=== PATIENT | male | born 1965 | race Caucasian/White ===

== ENCOUNTER 2023-01-11 11:25 | Inpatient (IN) | payer MEDICAID ==
[~2023-01-11] VITALS: Ht 170.2 cm; Wt 75.3 kg
[2023-01-11] MEDS ORDERED: SODIUM CHLORIDE 0.9% 1,000 ML IV ONE (11:45)
[2023-01-11 13:09] LABS: BASOPHILS % 0.1 % (0.0-2.0); EOSINOPHILS % 0.1 % (0.0-5.0); HEMATOCRIT. 31.1 % (42.0-52.0); HEMOGLOBIN. 10.2 g/dL (14.0-18.0); MEAN CORPUSCULAR HEMOGLOBIN 26.7 pg (28.0-32.0); MEAN CORPUSCULAR VOLUME 81.5 fL (80.0-94.0); MEAN PLATELET VOLUME 6.2 fl (7.4-10.4); MONOCYTES % 11.3 % (2.0-8.0); NEUTROPHILS % 80.5 % (40.0-76.0); PLATELET 260 x1000/uL (130-400); RED BLOOD CELL COUNT 3.81 mill/uL (4.7-6.1); RED CELL DISTRIBUTION WIDTH 17.5 % (11.6-14.6)
[2023-01-11 13:14] LABS: CHLORIDE 109 mEq/L (98-107)
[2023-01-11 13:20] LABS: INR 1.1; PROTHROMBIN TIME 11.8 sec (9.6-11.0)
[2023-01-11 14:40] LABS: ETHANOL BLOOD < 10 mg/dL
[2023-01-11] MEDS ORDERED: SODIUM CHLORIDE 0.9% 1000ML BAG (SEPSIS BOLUS) IV ONE (16:45)
[2023-01-11] MEDS ORDERED: PIPERACILLIN/TAZ 3.375G PREMIX 50 ML IV ONE (16:45)
[2023-01-11 17:00] LABS: CLARITY URINE CLOUDY (CLEAR); COLOR URINE YELLOW (YELLOW); KETONES URINE NEGATIVE (NEGATIVE); LEUKOCYTE ESTERASE URINE 3+ (NEGATIVE); NITRITE URINE POSITIVE (NEGATIVE); OCCULT BLOOD URINE TRACE (NEGATIVE); PH URINE 5.5 (4.5-8.0); PROTEIN URINE 1+ (NEGATIVE); SPECIFIC GRAVITY URINE 1.012 (1.005-1.030); UROBILINOGEN URINE 0.2 E.U./dL (0.2-1.0)
[2023-01-11] MEDS ORDERED: IOHEXOL-300 100 ML BOTTLE ONE (17:14)
[2023-01-11] MEDS ORDERED: VANCOMYCIN 1G PREMIX 200 ML IV ONE (19:30)
[2023-01-12] MEDS ORDERED: ASPI-1497 PO (03:09)
[2023-01-12] MEDS ORDERED: CARV25TA47 PO (03:10)
[2023-01-12] MEDS ORDERED: LISI40TA13 PO (03:10)
[2023-01-12] MEDS ORDERED: ATOR-2 PO (03:11)
[2023-01-12] MEDS ORDERED: HYDR-4134 PO (03:13)
[2023-01-12] MEDS ORDERED: AMLO10TA80 PO (03:13)
[2023-01-12 03:16] VITALS: BP 125/49
[2023-01-12] MEDS ORDERED: ISOS30TA91 PO (03:16)
[2023-01-12 04:00] VITALS: BP 125/49
[2023-01-12] MEDS: SODIUM CHLORIDE 0.9% 1,000 ML IV SCH ×3 (04:18→21:36)
[2023-01-12] MEDS ORDERED: CEFTRIAXONE 1,000 MG in DEXTROSE 5% WATER 50 ML IV SCH ×2 (06:00→09:00)
[2023-01-12 07:12] LABS: HEMATOCRIT. 31.6 % (42.0-52.0); HEMOGLOBIN. 10.4 g/dL (14.0-18.0); MEAN CORPUSCULAR HEMOGLOBIN 26.7 pg (28.0-32.0); MEAN CORPUSCULAR VOLUME 81.5 fL (80.0-94.0); MEAN PLATELET VOLUME 6.9 fl (7.4-10.4); PLATELET 245 x1000/uL (130-400); RED BLOOD CELL COUNT 3.88 mill/uL (4.7-6.1); RED CELL DISTRIBUTION WIDTH 17.9 % (11.6-14.6)
[2023-01-12 08:00] VITALS: BP 132/68
[2023-01-12 08:35] LABS: CHLORIDE 106 mEq/L (98-107)
[2023-01-12] MEDS: ENOXAPARIN 40MG/0.4ML SYR SUBCUT SCH (08:56)
[2023-01-12] MEDS ORDERED: CEFTRIAXONE SODIUM 1 G/VIAL IM SCH (09:00)
[2023-01-12 12:00] VITALS: BP 115/56
[2023-01-12] MEDS: ASPIRIN 81MG EC TABLET PO SCH (13:28)
[2023-01-12] MEDS: AMLODIPINE 10MG TABLET PO SCH (14:00)
[2023-01-12] MEDS: CARVEDILOL 12.5MG TABLET PO SCH ×2 (14:30→21:34)
[2023-01-12] MEDS: HYDRALAZINE HCL 25MG TABLET PO SCH ×2 (14:30→16:11)
[2023-01-12 14:51] LABS: PLATELET ESTIMATE NORMAL
[2023-01-12] MEDS: ISOSORBIDE MONONITRATE 30MG TABLET SR 24HR PO SCH (14:54)
[2023-01-12 16:00] VITALS: BP 144/78
[2023-01-12] MEDS ORDERED: VANCOMYCIN 1G PREMIX 200 ML IV SCH (16:00)
[2023-01-12] MEDS: MEROPENEM 1,000 MG in SODIUM CHLORIDE 0.9% 100 ML IV SCH ×2 (16:04→21:34)
[2023-01-12 20:00] VITALS: BP_SYST 126; BP_SYST 143; BP_SYST 145; BP_DIAS 69; BP_DIAS 72; BP_DIAS 75
[2023-01-12] MEDS: ATORVASTATIN CALCIUM 40MG TABLET PO SCH (21:34)
[2023-01-12] MEDS ORDERED: AMIKACIN SULFATE 500 MG in SODIUM CHLORIDE 0.9% 100 ML IV SCH (23:30)
[2023-01-13 00:09] VITALS: BP 144/72
[2023-01-13 04:00] VITALS: BP 130/56
[2023-01-13] MEDS: MEROPENEM 1,000 MG in SODIUM CHLORIDE 0.9% 100 ML IV SCH (06:12)
[2023-01-13 06:32] LABS: BASOPHILS % 0.2 % (0.0-2.0); EOSINOPHILS % 0.5 % (0.0-5.0); HEMATOCRIT. 29.8 % (42.0-52.0); HEMOGLOBIN. 9.8 g/dL (14.0-18.0); LYMPHOCYTES % 7.2 % (20.0-50.0); MEAN CORPUSCULAR HEMOGLOBIN 26.6 pg (28.0-32.0); MEAN CORPUSCULAR VOLUME 81.3 fL (80.0-94.0); MEAN PLATELET VOLUME 7.2 fl (7.4-10.4); MONOCYTES % 9.8 % (2.0-8.0); NEUTROPHILS % 82.3 % (40.0-76.0); PLATELET 225 x1000/uL (130-400); RED BLOOD CELL COUNT 3.67 mill/uL (4.7-6.1); RED CELL DISTRIBUTION WIDTH 18.5 % (11.6-14.6)
[2023-01-13 08:00] VITALS: BP 155/78
[2023-01-13] MEDS: ENOXAPARIN 40MG/0.4ML SYR SUBCUT SCH (08:28)
[2023-01-13] MEDS: ASPIRIN 81MG EC TABLET PO SCH (08:29)
[2023-01-13] MEDS: ISOSORBIDE MONONITRATE 30MG TABLET SR 24HR PO SCH (08:29)
[2023-01-13] MEDS: LISINOPRIL 40MG TABLET PO SCH (08:30)
[2023-01-13] MEDS: CARVEDILOL 12.5MG TABLET PO SCH ×2 (08:30→21:47)
[2023-01-13] MEDS: HYDRALAZINE HCL 25MG TABLET PO SCH (08:31)
[2023-01-13] MEDS: SODIUM CHLORIDE 0.9% 1,000 ML IV SCH ×2 (08:34→19:21)
[2023-01-13] MEDS: AMLODIPINE 10MG TABLET PO SCH (08:34)
[2023-01-13 12:00] VITALS: BP 131/67
[2023-01-13] MEDS ORDERED: MEROPENEM-0.9% SODIUM CHLORIDE 50 ML IV SCH (14:00)
[2023-01-13] MEDS: HYDRALAZINE HCL 50MG TABLET PO SCH ×2 (14:47→21:56)
[2023-01-13 15:30] LABS: CHLORIDE 111 mEq/L (98-107)
[2023-01-13 16:00] VITALS: BP 125/63
[2023-01-13 20:00] VITALS: BP_SYST 135; BP_SYST 138; BP_DIAS 72; BP_DIAS 73
[2023-01-13] MEDS: ATORVASTATIN CALCIUM 40MG TABLET PO SCH (21:47)
[2023-01-14] VITALS: BP 130/68
[2023-01-14 04:00] VITALS: BP 126/68
[2023-01-14] MEDS: SODIUM CHLORIDE 0.9% 1,000 ML IV SCH (05:29)
[2023-01-14] MEDS: HYDRALAZINE HCL 50MG TABLET PO SCH (05:29)
[2023-01-14 08:00] VITALS: BP_SYST 157; BP_SYST 167; BP_DIAS 88; BP_DIAS 90
[2023-01-14] MEDS ORDERED: CEFTRIAXONE 2 G in DEXTROSE 5% WATER 50 ML IV SCH (09:00)
[2023-01-14] MEDS: ENOXAPARIN 40MG/0.4ML SYR SUBCUT SCH (09:17)
[2023-01-14] MEDS: ISOSORBIDE MONONITRATE 30MG TABLET SR 24HR PO SCH (09:18)
[2023-01-14] MEDS: ASPIRIN 81MG EC TABLET PO SCH (09:19)
[2023-01-14] MEDS: AMLODIPINE 10MG TABLET PO SCH (09:19)
[2023-01-14] MEDS: LISINOPRIL 40MG TABLET PO SCH (09:20)
[2023-01-14] MEDS: CARVEDILOL 12.5MG TABLET PO SCH (09:20)
[2023-01-14] MEDS ORDERED: CLONIDINE 0.1MG TABLET PO NR (10:15)
[2023-01-14] MEDS ORDERED: LEVO750T68 MT (10:33)
[2023-01-14 10:54] LABS: BASOPHILS % 0.2 % (0.0-2.0); EOSINOPHILS % 0.4 % (0.0-5.0); HEMATOCRIT. 32.1 % (42.0-52.0); HEMOGLOBIN. 10.6 g/dL (14.0-18.0); LYMPHOCYTES % 12.2 % (20.0-50.0); MEAN CORPUSCULAR HEMOGLOBIN 26.8 pg (28.0-32.0); MEAN CORPUSCULAR VOLUME 81.5 fL (80.0-94.0); MEAN PLATELET VOLUME 6.7 fl (7.4-10.4); MONOCYTES % 10.4 % (2.0-8.0); NEUTROPHILS % 76.8 % (40.0-76.0); PLATELET 262 x1000/uL (130-400); RED BLOOD CELL COUNT 3.94 mill/uL (4.7-6.1); RED CELL DISTRIBUTION WIDTH 17.6 % (11.6-14.6)
[2023-01-14 11:24] LABS: CHLORIDE 106 mEq/L (98-107)
[2023-01-14 12:00] VITALS: BP_SYST 125; BP_SYST 134; BP_DIAS 75; BP_DIAS 79
[2023-01-14 13:46] VITALS: BP 134/79
[2023-01-14] MEDS ORDERED: HYDRALAZINE HCL 100MG TABLET PO SCH (14:00)
[2023-01-14] MEDS ORDERED: CLONIDINE 0.1MG TABLET PO SCH (18:00)
== END 2023-01-14 14:05 | disposition home or self-care (01) | DRG 720 ==
LOC: ER 11:25 → 7WST 15:55 → EDBEDREQ 16:06
PROVIDERS: ADMIT Internal Medicine; ATTEND Internal Medicine
DX: A41.9 Sepsis, unspecified organism (principal); G90.9 Disorder of the autonomic nervous system, unspecified; S09.90XA Unspecified injury of head, initial encounter; N12 Tubulo-interstitial nephritis, not specified as acute or chronic; N32.1 Vesicointestinal fistula; N30.90 Cystitis, unspecified without hematuria; D64.9 Anemia, unspecified; H54.62 Unqualified visual loss, left eye, normal vision right eye; I10 Essential (primary) hypertension; I25.10 Atherosclerotic heart disease of native coronary artery without angina pectoris; H53.8 Other visual disturbances; X58.XXXA Exposure to other specified factors, initial encounter; E78.5 Hyperlipidemia, unspecified; B96.20 Unspecified Escherichia coli [E. coli] as the cause of diseases classified elsewhere; Z59.00 Homelessness unspecified; Z79.82 Long term (current) use of aspirin; Z79.899 Other long term (current) drug therapy; Z86.73 Personal history of transient ischemic attack (TIA), and cerebral infarction without residual deficits; Z95.5 Presence of coronary angioplasty implant and graft; Y93.89 Activity, other specified; Y92.89 Other specified places as the place of occurrence of the external cause; Y99.8 Other external cause status
CPT/HCPCS: 36415; 71045; 74177; 80048; 80053; 80320; 81003; 83605; 84145; 84484; 85025; 87077; 87186; 93005; 93306; 93880; 99291; J0278; J0696; J1650; J2185; J2543; J3370; J7030; J7050; J7060; Q9967; G0480